=== PATIENT | female | born 1950 | race Caucasian/White ===

== ENCOUNTER → 2018-07-14 | Outpatient (REF) | payer MEDICARE ==
[2018-07-14 11:22] LABS: ALKALINE PHOSPHATASE 71 u/l (38-126); ANION GAP 14 (6-22 (CALC)); BILIRUBIN, TOTAL 0.9 mg/dL (0.0-1.4); BUN 25 mg/dL (8-23); BUN/CREATININE RATIO 27 (12-20 (CALC)); CALCULATED LDLCHOLESTEROL 80 mg/dL (62-129 (CALC)); CARBON DIOXIDE 28 mmol/l (22-30); CHLORIDE 103 mmol/l (95-108); CHOLESTEROL HDL RATIO 3.3 (<4.4 (CALC)); CREATININE 0.9 mg/dL (0.5-1.0); GFR > 60 ML/MIN (>=60 (CALC)); GFR FOR AFR.AMER. > 60 ML/MIN (>=60 (CALC)); HDL CHOLESTEROL 46 mg/dL (>=40); POTASSIUM 3.6 mmol/l (3.5-5.1); SGOT/AST 22 u/l (9-36); SODIUM 142 mmol/l (137-146); TOTAL CHOLESTEROL 152 mg/dl (0-199); TOTAL TRIGLYCERIDES 130 mg/dl (30-149); VLDL CHOLESTROL 26 mg/dl (1-41 (CALC))
== END | disposition home or self-care (01) ==
LOC: LAB 10:30
PROVIDERS: ATTEND Internal Medicine Geriatric Medicine
DX: E78.2 Mixed hyperlipidemia (principal); I10 Essential (primary) hypertension; Z12.11 Encounter for screening for malignant neoplasm of colon

== ENCOUNTER → 2018-07-30 | Outpatient (REF) | payer MEDICARE | END | disposition home or self-care (01) | LOC: MAMMO 10:47 | PROVIDERS: ATTEND Internal Medicine Geriatric Medicine | DX: Z12.31 Encounter for screening mammogram for malignant neoplasm of breast (principal) ==

== ENCOUNTER 2023-02-03 09:25 | Emergency (ER) | payer MEDICARE ==
[2023-02-03] VITALS (18 sets, daily range): BP systolic 68–122; BP diastolic 30–74
[2023-02-03 10:21] LABS: BASO% 0.1 % (0-3); HEMATOCRIT 43.3 % (37.0-47.0); HEMOGLOBIN 14.7 g/dl (12.0-16.0); IMMATURE GRANULOCYTES 0.4 % (0.0-5.0); LYMPH% 1.9 % (15-41); MEAN CELL VOLUME 94.5 fL CALC (80.0-100.0); MEAN CORPUSCULAR HGB 32.1 pG CALC (26.0-32.0); MEAN CORPUSCULAR HGB CONC 33.9 g/dL CAL (32.0-36.0); MONO% 5.4 % (2-13); NEUT# 17.05 thou/uL (2.00-7.15); NEUT% 92.2 % (42-76); RED BLOOD COUNT 4.58 mill/uL (4.20-5.60); RED CELL DISTRI WIDTH 12.5 % (11.5-15.5)
[2023-02-03 10:31] LABS: CREATININE 1.3 mg/dL (0.5-1.0); POTASSIUM 3.1 mmol/l (3.5-5.1); TOTAL PROTEIN 8.1 g/dL (6.3-8.2)
[2023-02-03 10:38] LABS: BILIRUBIN, TOTAL 1.7 mg/dL (0.02-1.3)
[2023-02-03] MEDS ORDERED: LIPITOR80 M1 PO (11:15)
[2023-02-03] MEDS ORDERED: RESTORIL15 MG PO (11:16)
[2023-02-03] MEDS ORDERED: OMEPRAZOLE DR20 MG PO (11:16)
[2023-02-03] MEDS ORDERED: CHLORTHALIDONE25 MG PO (11:17)
[2023-02-03] MEDS ORDERED: LOSARTAN POTAS100 MG PO (11:17)
[2023-02-03] MEDS ORDERED: ALLERGY RE50 MCG/ACT NAB (11:18)
[2023-02-03 11:42] LABS: ACT PARTIAL THROMBO TIME 33.9 SECONDS (20.0-32.5); INTERNATIONAL NORMALIZED RATIO 1.1 RATIO (0.7-1.3); PROTHROMBIN TIME 10.8 SECONDS (9.0-12.5)
[2023-02-03 13:35] LABS: URINE BLOOD DIPSTICK Large (NEGATIVE); URINE GLUCOSE - DIPSTICK Negative (NEGATIVE); URINE KETONE 15 mg/dL (NEGATIVE); URINE LEUK ESTERASE Negative (NEGATIVE); URINE NITRITE - DIPSTICK Negative (Negative); URINE PROTEIN - DIPSTICK >=300 mg/dL (NEG-TRACE); URINE SPECIFIC GRAVITY 1.025
[2023-02-03 13:40] LABS: URINE COLOR Dark yellow
[2023-02-03 13:44] LABS: URINE BACTERIA MODERATE hpf
[2023-02-03 13:45] LABS: URINE CASTS MODERATE lpf (NONE-RARE)
== END 2023-02-03 13:23 | disposition short-term general hospital (02) ==
LOC: ED 09:25
PROVIDERS: Emergency Medicine
PROC: 0T9B70Z Drainage of Bladder with Drainage Device, Via Natural or Artificial Opening (ICD-10-PCS; principal; 2023-02-03)
DX: A41.9 Sepsis, unspecified organism (principal); R65.20 Severe sepsis without septic shock; J18.9 Pneumonia, unspecified organism; N17.9 Acute kidney failure, unspecified; R79.89 Other specified abnormal findings of blood chemistry; M62.82 Rhabdomyolysis; I10 Essential (primary) hypertension; I25.10 Atherosclerotic heart disease of native coronary artery without angina pectoris; K21.9 Gastro-esophageal reflux disease without esophagitis; Z91.81 History of falling; Z20.822 Contact with and (suspected) exposure to COVID-19

== ENCOUNTER 2023-02-10 21:03 | Inpatient (IN) | payer MEDICARE ==
[~2023-02-10] VITALS: Ht 160 cm; Wt 108.4 kg
[~2023-02-10 21:03] MED LIST: ALLERGY RE50 MCG/ACT NAB; CHLORTHALIDONE25 MG PO; LIPITOR80 M1 PO; LOSARTAN POTAS100 MG PO; OMEPRAZOLE DR20 MG PO; RESTORIL15 MG PO
--- NOTE | 2023-02-10 21:40 | NUR ---
PT TO RM 9 VIA EMS
[2023-02-10 22:18] LABS: BASO% 1.2 % (0-3); MEAN CELL VOLUME 99.2 fL CALC (80.0-100.0); MEAN CORPUSCULAR HGB 32.1 pG CALC (26.0-32.0); MEAN CORPUSCULAR HGB CONC 32.4 g/dL CAL (32.0-36.0); MONO% 5.2 % (2-13); NEUT# 7.69 thou/uL (2.00-7.15); NEUT% 72.1 % (42-76); RED BLOOD COUNT 3.55 mill/uL (4.20-5.60); RED CELL DISTRI WIDTH 14.2 % (11.5-15.5)
[2023-02-10 22:26] LABS: ALKALINE PHOSPHATASE 82 u/l (38-126); BILIRUBIN, TOTAL 1.2 mg/dL (0.02-1.3); BUN 21 mg/dL (8-23); BUN/CREATININE RATIO 25 (12-20 (CALC)); CARBON DIOXIDE 29 mmol/l (22-30); CPK 468 u/l (30-135); CREATININE 0.8 mg/dL (0.5-1.0); GFR FOR AFR.AMER. > 60 ML/MIN (>=60 (CALC)); GFR OTHER RACES > 60 ML/MIN (>=60 (CALC)); LIPASE 110 u/l (23-300); MAGNESIUM 1.2 mg/dL (1.6-2.3); SGOT/AST 240 u/l (9-36)
[2023-02-10 22:27] LABS: HEMATOCRIT 35.2 % (37.0-47.0); HEMOGLOBIN 11.4 g/dl (12.0-16.0); IMMATURE GRANULOCYTES 7.5 % (0.0-5.0)
[2023-02-10 22:28] LABS: ALBUMIN 2.9 g/dL (3.2-5.0); ANION GAP 8 (6-22 (CALC)); CHLORIDE 105 mmol/l (95-108); POTASSIUM 3.9 mmol/l (3.5-5.1); SODIUM 138 mmol/l (137-146); TOTAL PROTEIN 6.1 g/dL (6.3-8.2)
--- NOTE | 2023-02-10 22:45 | NUR ---
PT RESTING IN BED W/ EYES CLOSED. EASILY AROUSABLE. RESP EVEN AND UNLABORED. NO DISTRESS NOTED. VSS. SKIN W/P/D. INFORMED PT OF PLAN OF CARE AND WAIT TIME AND SHE VERBALIZED UNDERSTANDING. CALL LIGHT IN REACH.
--- NOTE | 2023-02-10 23:15 | NUR ---
IV NOT PATENT IN CT. BA, NURSING TAN ROOM SUPERVISOR TO CT TO INITIATE A NEW IV.
--- NOTE | 2023-02-11 | NUR ---
PT BACK FROM CT AND NEW IV PLACED IN LAC, NOT PATENT. NO INFILTRATE NOTED. NO REDNESS/SWELLING AFTER INJECTION OF CT CONTRAST. MD NOTIFIED AND AWARE OF INABILITY TO INITIATE IV.
--- NOTE | 2023-02-11 00:15 | NUR ---
JESUS HAMMOND ATTEMPTED TO INITIATE IV X 2 USING US MACHINE AND WAS UNSUCCESSFUL. MD AGAIN INFORMED OF INABILITY TO ESTABLISH IV ACCESS AND CENTRAL LINE REQUESTED. STATES THAT PT "DOES NOT NEED A CENTRAL LINE" AND TO "TRY AGAIN".
--- NOTE | 2023-02-11 00:25 | NUR ---
WADE EMISSIONS TECHNICIAN NURSE BEDSIDE. IV ATTEMPTS X 2 UNSUCCESSFUL. MD NOTIFIED AND AWARE. CENTRAL LINE IS AGAIN REQUESTED AND MD AGAIN STATES THAT THE "PT DOES NOT NEED A CENTRAL LINE". MD AGAIN INFORMED OF INABILITY TO ESTABLISH AND IV AND MULTIPLE ATTEMPTS AND HE STATES THAT HE WILL ATTEMPT A PERIPHERAL LINE.
--- NOTE | 2023-02-11 00:25 | NUR ---
THIS RN TRIED 3X WITH IV ULTRASOUND IN AC OR HIGHER FOR ACCESS; PTS BLOOD WAS CLOTTING SOON CATHETHER HIT VEIN AND I WAS UNABLE TO PULL OR FLUSH CATHETER DUE TO THIS. NOTIFIED.
[2023-02-11] MEDS ORDERED: ASPIRINCHW 81MG PO (01:03)
[2023-02-11] MEDS ORDERED: VITAMIN D-32000 UNI1 (01:04)
--- NOTE | 2023-02-11 01:25 | NUR ---
PT CONTINUES RESTING IN BED W/ EYES CLOSED. EASILY AROUSABLE. RESP REMAIN EVEN AND UNLABORED. AWAITING IV ACCESS FOR MEDICATION ADMINISTRATION AND ADMISSION TO HOSPITAL.
--- NOTE | 2023-02-11 02:25 | NUR ---
PT CONTINUES RESTING IN BED W/ EYES CLOSED, EASILY AROUSABLE. AWAITING IV ACCESS FOR MEDICATION ADMINISTRATION AND ADMISSION.
--- NOTE | 2023-02-11 03:36 | NUR ---
BEDSIDE FOR IV INSERTION
--- NOTE | 2023-02-11 04:40 | NUR ---
LT IJ PLACED BY . AWAITING RADIOLOGY TO CONFIRM PLACEMENT
--- NOTE | 2023-02-11 05:16 | NUR ---
REPORT CALLED TO JESUS BOYLE
--- NOTE | 2023-02-11 06:13 | NUR ---
UNABLE TO DRAW BLOOD FROM [facility]. PT C/O PAIN TO SITE. FLUSHED W/ SOME RESISTANCE BY JUAN RAMON OLVERA RN AND SWELLING NOTED. XRAY REPORTS NO VISUALIZATION OF CATHETER. NOTIFIED AND LINE PULLED. #22 INSERTED IN LT HAND AND REPEAT LABS DRAWN. PT TOLERATED WELL.
--- NOTE | 2023-02-11 06:30 | NUR ---
PATIENT ADMITTED TO [facility] VIA STRETCHER. ALERT AND ABLE TO MAKE NEEDS KNOWN. PATIENT TRANSFERRED TO BED WITH STAND BY ASSIST. PATIENT DENIES NEEDING ANYTHING AT THIS TIME. BED IN LOW POSITION. DID ORIENT PATIENT TO CALL LIGHT.
--- NOTE | 2023-02-11 06:54 | NUR ---
CALLED PASSENGER BARGE MASTER PROVIDER ON PATIENTS CRITICAL TROPONIN. PROVIDER ORDERED EKG AND CONSULT FOR INTERVENTIONAL RADIOLOGY FOR IV ACCESS.
[2023-02-11 06:57] VITALS: BP 140/52
--- NOTE | 2023-02-11 10:00 | NUR ---
MULTIPLE EKGS WERE DONE AFTER FIRST TROP WAS POSITIVE. SECOND TROP NEGATIVE. CARDIOLOGY WAS CONSULT AND SAW PT OVER THE MONITOR. CALL LIGHT WITHIN REACH. PLAN OF CARE ONGOING.
[2023-02-11 11:14] VITALS: BP 133/46
[2023-02-11 11:15] VITALS: BP 133/46
--- NOTE | 2023-02-11 13:55 | NUR ---
PATIENT IS RESTING CENTRAL LINE DRESSING INTACT FLUSHED WITHOUT ANY ISSUES. PATIENT WAS PLACED ON NC 2L DUE TO O2 READING 90% NOW ITS 95%. CALL LIGHT WITHIN REACH. PLAN OF CARE ONGOING.
[2023-02-11 15:08] VITALS: BP 133/52
[2023-02-11 19:25] VITALS: BP 114/50
--- NOTE | 2023-02-11 20:00 | NUR ---
PATIENT SITTING UP IN BED AT THIS TIME-O2 VIA NASAL CANNULA IN PLACE AT 2LPM. O2 SAT IS 95%. AWAKE ALERT AND ORIENTEDX3. PATIENT WITH NO COMPLAINTS AT THIS TIME AND STATES THAT SHE IS FEELING SOME BETTER. STATES THAT SHE WOULD LIKE TO GO TO REHAB AFTER SHE LEAVES HERE-STATES THAT SHE IS VERY WEAK AFTER BEING IN THE HOSPITAL AT [facility] AND NOW BACK IN THE HOSPITAL HERE. STATES THAT SHE DOES LIVE ALONE AND NO FAMILY LOCALLY. TELE MONITOR IN PLACE READING SER-70'S. PUREWICK IN PLACE AND DRAINING YELLOW URINE. PATIENT WITH RIGHT IJ TLC INTACT-SALINE LOCK. LUNGS ARE CLEAR AT THIS TIME. ABD IS SOFT WITH ACTIVE BS. LAST BM WAS TODAY. SAFETY PRECAUTIONS REINFORCED. CALL LIGHT IN REACH. WILL CONT TO MONITOR.
[2023-02-11 23:50] VITALS: BP 110/46
[2023-02-12] VITALS (7 sets, daily range): BP systolic 121–152; BP diastolic 39–66
--- NOTE | 2023-02-12 | NUR ---
RESTING IN BED WITH O2 VIA NASAL CANNULA IN PLACE. EYES ARE CLOSED AND RESPS ARE EVEN AND UNLABORED. TELE MONITOR IN PLACE. PUREWICK IN PLACE. CALL LIGHT IN REACH. WILL CONT TO MONITOR.
--- NOTE | 2023-02-12 05:25 | NUR ---
PATIENT WAWAKE WATCHING TV AT THIS TIME. O2 VIA NASAL CANNULA IN PLACE AT 2LPM. TELE MONITOR IN PLACE. NO COMPLAINTS AT THIS TIME. LAB WORK DRAWN FROM RIGHT IJ BROWN PORT WITH GOOD BLOOD RETURN. FLUSHED PER PROTOCOL. WHITE AND BLUE PORT ALSO FLUSHED WITH GOOD BLOOD RETURN. CALL LIGHT IN REACH. WILL CONT TO MONITOR.
[2023-02-12 06:05] LABS: BASO% 0.3 % (0-3); HEMATOCRIT 31.8 % (37.0-47.0); HEMOGLOBIN 10.2 g/dl (12.0-16.0); LYMPH% 25.8 % (15-41); MEAN CORPUSCULAR HGB 32.4 pG CALC (26.0-32.0); MEAN CORPUSCULAR HGB CONC 32.1 g/dL CAL (32.0-36.0); MONO% 5.4 % (2-13); NEUT# 5.72 thou/uL (2.00-7.15); NEUT% 63.5 % (42-76); RED BLOOD COUNT 3.15 mill/uL (4.20-5.60); RED CELL DISTRI WIDTH 14.6 % (11.5-15.5)
[2023-02-12 06:21] LABS: ALKALINE PHOSPHATASE 67 u/l (38-126); ANION GAP 4 (6-22 (CALC)); BILIRUBIN, TOTAL 0.8 mg/dL (0.02-1.3); BUN 21 mg/dL (8-23); BUN/CREATININE RATIO 23 (12-20 (CALC)); CARBON DIOXIDE 30 mmol/l (22-30); CHLORIDE 108 mmol/l (95-108); CREATININE 0.9 mg/dL (0.5-1.0); GFR FOR AFR.AMER. > 60 ML/MIN (>=60 (CALC)); GFR OTHER RACES > 60 ML/MIN (>=60 (CALC)); POTASSIUM 3.9 mmol/l (3.5-5.1); SGOT/AST 107 u/l (9-36); SODIUM 138 mmol/l (137-146); TOTAL PROTEIN 5.2 g/dL (6.3-8.2)
[2023-02-12 06:25] LABS: ALBUMIN 2.3 g/dL (3.2-5.0); MAGNESIUM 1.7 mg/dL (1.6-2.3)
--- NOTE | 2023-02-12 08:18 | NUR ---
PATIENT RESTING NURSE OBSERVED A NEW ONSET OF COUGH. PATIENT STATED THAT SHE IS HAVING A PRODUCTIVE COUGH CLEAR MINIMAL AMOUNT. WILL INFORM MD. VIDEO MONITOR WITH CARDIOLOGY AWAITING AT PATIENT BEDSIDE.
--- NOTE | 2023-02-12 08:18 | NUR ---
CALLED [employer] REGARDING FAX MADE [employer] TO RECEIVE RECORDS. KACY STATED DIDNT SEE THE ONE FROM YESTERDAY BUT GOT THE ONE THAT I JUST FAXED. STATED SHE IS WORKING ON IT NOW AND SEND IT TO THE FAX NUMBER.
[2023-02-13 04:39] VITALS: BP 136/58
[2023-02-13 06:57] VITALS: BP 130/53
--- NOTE | 2023-02-13 07:00 | NUR ---
RECEIVED BEDSIDE REPORT FROM SHAKA DELGADO. PT IS RESTING WITH EYES CLOSED. ALL SAFETY MEASURES IN PLACE. VSS. NO NEEDS AT THIS TIME.
--- NOTE | 2023-02-13 08:50 | NUR ---
PT REPORTED BLEEDING UNDER HER CENTRAL LINE DRESSING. DRESSING REMOVED, AREA CLEANED AND NEW DRESSING PLACED. PT TOLERATED WELL.
[2023-02-13 08:51] LABS: URINE BILIRUBIN - DIPSTICK Negative (NEGATIVE); URINE BLOOD DIPSTICK Negative (NEGATIVE); URINE COLOR Yellow; URINE GLUCOSE - DIPSTICK Negative (NEGATIVE); URINE KETONE Negative (NEGATIVE); URINE LEUK ESTERASE Negative (NEGATIVE); URINE NITRITE - DIPSTICK Negative (Negative); URINE PROTEIN - DIPSTICK Negative (NEG-TRACE); URINE SPECIFIC GRAVITY 1.025
[2023-02-13 10:28] VITALS: BP 140/53
--- NOTE | 2023-02-13 15:01 | NUR ---
CHANGED PT CENTRAL LINE DRESSING AGAIN. PT IS OOZING A LITTLE OUT FROM UNDER THE TEGADERM.
[2023-02-13 15:14] VITALS: BP 140/65
[2023-02-13 16:08] LABS: BASO% 0.2 % (0-3); EOS% 1.2 % (0-8); HEMATOCRIT 31.3 % (37.0-47.0); HEMOGLOBIN 9.8 g/dl (12.0-16.0); IMMATURE GRANULOCYTES 2.3 % (0.0-5.0); LYMPH% 28.6 % (15-41); MEAN CELL VOLUME 102.3 fL CALC (80.0-100.0); MEAN CORPUSCULAR HGB CONC 31.3 g/dL CAL (32.0-36.0); MONO% 6.7 % (2-13); NEUT# 5.08 thou/uL (2.00-7.15); RED BLOOD COUNT 3.06 mill/uL (4.20-5.60); RED CELL DISTRI WIDTH 14.4 % (11.5-15.5)
[2023-02-13 16:20] LABS: ALBUMIN 2.4 g/dL (3.2-5.0); ALKALINE PHOSPHATASE 61 u/l (38-126); ANION GAP 4 (6-22 (CALC)); BILIRUBIN, TOTAL 0.7 mg/dL (0.02-1.3); BUN 19 mg/dL (8-23); BUN/CREATININE RATIO 26 (12-20 (CALC)); CARBON DIOXIDE 28 mmol/l (22-30); CHLORIDE 112 mmol/l (95-108); CREATININE 0.7 mg/dL (0.5-1.0); GFR FOR AFR.AMER. > 60 ML/MIN (>=60 (CALC)); GFR OTHER RACES > 60 ML/MIN (>=60 (CALC)); POTASSIUM 3.6 mmol/l (3.5-5.1); SGOT/AST 63 u/l (9-36); SODIUM 140 mmol/l (137-146); TOTAL PROTEIN 5.2 g/dL (6.3-8.2)
[2023-02-13 19:24] VITALS: BP 120/37
--- NOTE | 2023-02-13 20:00 | NUR ---
RECEIVED BEDSIDE REPORT FROM DAYSHIFT NURSE. PT IS SITTING UP IN BED. PT HAS NO COMPLAINTS OF PAIN AT THIS TIME. PT WAS MADE AWARE OF CHANGE OF NURSE FOR THE NIGHT. SAFETY PRECAUTIONS IN PLACE AND CALL LIGHT WITHIN REACH.
--- NOTE | 2023-02-14 | NUR ---
PT IS SLEEPING COMFORTABLY IN BED. PT SHOWS NO SIGNS OF PAIN OR DISTRESS AT THE MOMENT. SAFETY PRECAUTIONS IN PLACE AND CALL LIGHT WITHIN REACH.
[2023-02-14 01:02] VITALS: BP 131/48
[2023-02-14 04:35] VITALS: BP 113/40
[2023-02-14 05:43] LABS: BASO% 0.6 % (0-3); EOS% 1.1 % (0-8); HEMATOCRIT 33.5 % (37.0-47.0); HEMOGLOBIN 10.8 g/dl (12.0-16.0); IMMATURE GRANULOCYTES 1.5 % (0.0-5.0); LYMPH% 32.4 % (15-41); MEAN CELL VOLUME 101.5 fL CALC (80.0-100.0); MEAN CORPUSCULAR HGB 32.7 pG CALC (26.0-32.0); MEAN CORPUSCULAR HGB CONC 32.2 g/dL CAL (32.0-36.0); MONO% 7.1 % (2-13); NEUT# 4.49 thou/uL (2.00-7.15); NEUT% 57.3 % (42-76); RED BLOOD COUNT 3.3 mill/uL (4.20-5.60); RED CELL DISTRI WIDTH 14.6 % (11.5-15.5)
[2023-02-14 05:55] LABS: ALBUMIN 2.8 g/dL (3.2-5.0); ALKALINE PHOSPHATASE 69 u/l (38-126); ANION GAP 8 (6-22 (CALC)); BUN 16 mg/dL (8-23); BUN/CREATININE RATIO 25 (12-20 (CALC)); CARBON DIOXIDE 31 mmol/l (22-30); CHLORIDE 104 mmol/l (95-108); CREATININE 0.7 mg/dL (0.5-1.0); GFR FOR AFR.AMER. > 60 ML/MIN (>=60 (CALC)); GFR OTHER RACES > 60 ML/MIN (>=60 (CALC)); POTASSIUM 3.7 mmol/l (3.5-5.1); SGOT/AST 64 u/l (9-36); SODIUM 139 mmol/l (137-146); TOTAL PROTEIN 5.8 g/dL (6.3-8.2)
[2023-02-14 07:00] VITALS: BP 135/52
[2023-02-14 11:01] VITALS: BP 128/50
[2023-02-14] MEDS ORDERED: XARELTO10 MG PO (11:53)
[2023-02-14] MEDS ORDERED: XARELTO15 MG PO (11:54)
[2023-02-14] MEDS ORDERED: LASIX 20 MG TAB20 MG PO (12:47)
== END 2023-02-14 13:56 | DRG 176 ==
LOC: ED 21:03 → ED-I 23:08 → ED 02-11 00:35 → MS2 02-11 00:36
PROVIDERS: Internal Medicine; ADMIT Student in an Organized Health Care Education/Training Program; ATTEND Student in an Organized Health Care Education/Training Program
PROC: 05HY33Z Insertion of Infusion Device into Upper Vein, Percutaneous Approach (ICD-10-PCS; principal; 2023-02-11)
PROC: 02HV33Z Insertion of Infusion Device into Superior Vena Cava, Percutaneous Approach (ICD-10-PCS; 2023-02-11)
PROC: B548ZZA Ultrasonography of Superior Vena Cava, Guidance (ICD-10-PCS; 2023-02-11)
DX: I26.99 Other pulmonary embolism without acute cor pulmonale (principal); Z68.41 Body mass index [BMI] 40.0-44.9, adult; T82.838A Hemorrhage due to vascular prosthetic devices, implants and grafts, initial encounter; R79.89 Other specified abnormal findings of blood chemistry; R09.02 Hypoxemia; E83.42 Hypomagnesemia; I10 Essential (primary) hypertension; I25.10 Atherosclerotic heart disease of native coronary artery without angina pectoris; R73.03 Prediabetes; K21.9 Gastro-esophageal reflux disease without esophagitis; M79.89 Other specified soft tissue disorders; E66.9 Obesity, unspecified; Z98.61 Coronary angioplasty status; Y83.8 Other surgical procedures as the cause of abnormal reaction of the patient, or of later complication, without mention of misadventure at the time of the procedure
CPT/HCPCS: A9540; J1650; J3475; Q9967